=== PATIENT | female | born 1965 | race African-American/Black ===

== ENCOUNTER 2017-08-04 18:53 | Inpatient (IN) ==
[2017-08-04 20:04] LABS: Basophils % 0.1 % (0.0-0.8); Eosinophils % 0.4 % (0.00-10.9); Immature Granulocytes % 0.7 %; Immature Granulocytes Absolute 0.07 #; Lymphocytes # 0.9 10*3/uL (1.4-4.0); Lymphocytes % 9.5 % (21.3-54.2); Mean Corpuscular HGB Conc 27.3 GM/DL (32-36); Mean Corpuscular Hemoglobin 17 PG (27-34); Mean Corpuscular Volume 63.8 FL (87-102); Mean Platelet Volume 10.6 FL (9.6-12.0); Monocytes # 0.4 10*3/uL (0.11-0.8); Monocytes % 4.2 % (1.7-12.7); NRBC # 0.03 10*3/uL; Neutrophils # 8.4 10*3/uL (1.4-7.4); Neutrophils % 85.1 % (38.7-73.9); Platelet Count 482 T/CUMM (130-400); Red Blood Count 2.18 MC/CUMM (3.8-5.5); Red Cell Distribution Width 22.3 % (9.3-17.3); White Blood Count 9.9 T/CUMM (4-12)
[2017-08-04 20:07] LABS: Hematocrit 13.9 VOL% (35.7-47.0); Hemoglobin 3.8 GM/DL (12.0-16.0)
[2017-08-04 20:33] LABS: Alanine Aminotransferase < 9 U/L (13-56); Albumin 3.2 G/DL (3.4-5.0); Alkaline Phosphatase 85 U/L (45-117); Aspartate Amino Transferase 6 U/L (0-37); Blood Urea Nitrogen 7 MG/DL (7-18); Calcium 8.6 MG/DL (8.5-10.1); Glucose 93 MG/DL (74-106); Magnesium 1.7 MG/DL (1.8-2.4); Osmolality,Calculated 274.5 MOS/KG (273-304); Potassium 3.7 MMOL/L (3.5-5.1); Sodium 139 MMOL/L (136-145); Total Protein 8.1 G/DL (6.4-8.3)
[2017-08-04 21:08] LABS: Hypochromasia 3+; Microcytosis 2+; Ovalocytes Few; Platelet Estimate Increased; Poikilocytosis 2+; Tear Drop Cells Few
[2017-08-04 22:13] LABS: INR 1.1; PT Patient Result 11.6 SECS
[2017-08-04] MEDS ORDERED: MORPHINE 2 MG/1 ML SYRINGE IV PRN (23:44)
[2017-08-04] MEDS ORDERED: ONDANSETRON 4 MG/2 ML VIAL IV PRN (23:44)
[2017-08-04] MEDS ORDERED: SODIUM CHLORIDE 0.9% 1,000 ML IV PRN (23:44)
[2017-08-04] MEDS ORDERED: FUROSEMIDE 20 MG/2 ML VIAL IV PRN (23:44)
[2017-08-04] MEDS ORDERED: MAGNESIUM SULF RIDER 1 GM in PREMIX 1 EACH IV ONE (23:44)
[2017-08-04] MEDS ORDERED: ACETAMINOPHEN 325 MG TABLET PO PRN (23:44)
[2017-08-05] MEDS ORDERED: SODIUM CHLORIDE 0.9% 1,000 ML IV PRN (01:08)
[2017-08-05] MEDS: SODIUM CHLORIDE 0.9% 1,000 ML IV SCH ×2 (01:56→15:17)
[2017-08-05] MEDS ORDERED: FUROSEMIDE 20 MG/2 ML VIAL IV PRN ×4 (04:55→13:23)
[2017-08-05] MEDS ORDERED: MAGNESIUM SULF RIDER 1 GM in PREMIX 1 EACH IV ONE (08:00)
[2017-08-05] MEDS: CARVEDILOL 6.25 MG TABLET PO SCH ×2 (08:20→16:26)
[2017-08-05] MEDS: FERROUS SULFATE 325 MG TABLET PO SCH ×2 (08:21→16:26)
[2017-08-05] MEDS ORDERED: LISINOPRIL 2.5 MG TABLET PO SCH (09:00)
[2017-08-05] MEDS ORDERED: DOCUSATE SODIUM 100 MG CAPSULE PO SCH (09:00)
[2017-08-05] MEDS ORDERED: PANTOPRAZOLE 40 MG TABLET PO SCH (09:00)
[2017-08-05 16:24] LABS: Hematocrit 24.7 VOL% (35.7-47.0); Hemoglobin 7.5 GM/DL (12.0-16.0)
[2017-08-05 16:31] VITALS: BP 137/70
== END 2017-08-05 17:55 | disposition home or self-care (01) | DRG 812 ==
LOC: N.ED 18:53 → SUATTDRO 21:12 → N.EDINP 21:12 → N.2E 23:02
PROVIDERS: ADMIT Internal Medicine; ATTEND Hospitalist